=== PATIENT | male | born 1955 ===

== ENCOUNTER 2018-07-21 09:45 | Day surgery (SDC) | payer MEDICAID ==
--- NOTE | 2018-07-21 10:15 | CP.SDSHP ---
Same Day Surgery H & P - History Proposed Procedure: US guided FNA of left thyroid nodule Pre-Op Diagnosis: Thyroid nodule - Physical Exam Mental Status: Alert & Oriented x3 - Impression Impression: Pt with left thyroid nodule. Plan US guided FNA. Pt. Evaluated Today:Candidate for Anesthesia & Procedure: No - Date & Time Date: 07/21/18 Time: 10:14 Short Stay Discharge - Short Stay Discharge Admitting Diagnosis/Reason for Visit: DX:LEFT THYROID LOBE Disposition: HOME/ ROUTINE
--- NOTE | 2018-07-21 10:31 | PCM.SURG1 ---
Surgeon's Initial Post Op Note - Surgeon's Notes Surgeon: Jarrod Bojorquez MD Nutrition Internship: NONE Type of Anesthesia: Local Pre-Operative Diagnosis: Left thyroid nodule Operative Findings: US showed a complex 4.5 cm left thyroid nodule Post-Operative Diagnosis: Left thyroid nodule Operation Performed: US guided FNA Specimen/Specimens Removed: 25 g FNA X 5 Estimated Blood Loss: EBL {In ML}: 0 Blood Products Given: N/A Drains Used: No Drains Post-Op Condition: Good Date of Surgery/Procedure: 07/21/18 Time of Surgery/Procedure: 10:31
[2018-07-21] MEDS ORDERED: Lidocaine 2% MPF (5 ml) Inj ONE (11:05)
--- NOTE | 2018-07-21 12:18 | US ---
PROCEDURE: Date of Procedure: 07/21/2018 PROCEDURE: 1. Ultrasound guided FNA of left thyroid nodule, CPT 81775 2. Ultrasound guidance for FNA, 97019 Medications: 3cc 1% Lidocaine HISTORY: Enlarged left thyroid nodule. TECHNIQUE: Following informed consent and procedure time-out, a limited ultrasound patient's neck confirmed the presence of a 4.5cm complex mixed solid and cystic left thyroid nodule. After the patient's neck was prepped and draped in the usual sterile fashion, the skin was anesthetized with 1% lidocaine. Ultrasound-guided fine needle aspiration was then performed of the dominant left thyroid nodule. A total of 5 passes were made into the nodule with 25 gauge needle under ultrasound guidance. The FNA specimen was sent for routine pathology and genetics. Post biopsy ultrasound showed no hematoma. IMPRESSION: Ultrasound-guided FNA of the dominant left thyroid nodule.
[2018-07-21 14:43] VITALS: BMI 24.3
== END 2018-07-21 10:15 | disposition home or self-care (01) ==
LOC: C.SPRAD 09:45
PROVIDERS: ATTEND Radiology Vascular & Interventional Radiology
DX: E04.1 Nontoxic single thyroid nodule (principal)